=== PATIENT | male | born 1990 | race Caucasian/White ===

== ENCOUNTER 2020-01-13 16:11 | Emergency (ER) | payer MEDICAID, SELFPAY ==
--- NOTE | 2020-01-13 16:27 | XRR_ITS ---
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 Views: 3 or more views. COMPARISON: No relevant prior studies available. FINDINGS: Bones/joints: No acute fracture. Mild flexion positioning of the 2nd through 5th digits. Soft tissues: Soft tissue edema diffusely. XR/XR hand LT min 3V* [id number] IMPRESSION: 1. No acute osseous abnormality. 2. Soft tissue edema.
[2020-01-13 16:33] VITALS: BP 107/60; PULSE 70; RESP 16; TEMP 36.7; O2SAT 99; BMI 22.4
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
== END 2020-01-13 17:37 | disposition home or self-care (01) ==
LOC: ER 17:47
PROVIDERS: Emergency Provider Nurse Practitioner Family; PCP Family Medicine
DX: L03.114 Cellulitis of left upper limb (principal)
CPT/HCPCS: 12345; 73130; 99281; 99282

== ENCOUNTER 2024-02-25 07:52 | Emergency (ER) | payer SELFPAY ==
[2024-02-25 07:58] VITALS: BP 142/90; PULSE 67; RESP 21; TEMP 36.6; O2SAT 98; BMI 28.5
--- NOTE | 2024-02-25 08:00 | XRR_ITS ---
PROCEDURE INFORMATION: Exam: XR Chest Exam date and time: 02/25/2024 8:03 AM Age: 33 years old Clinical indication: Shortness of breath TECHNIQUE: Imaging protocol: Radiologic exam of the chest. Views: 1 view. COMPARISON: No relevant prior studies available. FINDINGS: Lungs: Unremarkable. No consolidation. Pleural spaces: Unremarkable. No pleural effusion. No pneumothorax. Heart/Mediastinum: Unremarkable. No cardiomegaly. Bones/joints: No acute bony abnormalities detected. XR/XR chest 1V portable [id number] IMPRESSION: Negative chest exam.
--- NOTE | 2024-02-25 08:00 | ECG_ITS ---
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 Measurements Intervals [place] Rate: 68 P: 76 [place]: 154 QRS: 89 QRSD: 99 T: 66 QT: 381 QTc: 405 Interpretive Statements SINUS RHYTHM No previous ECG available for comparison Electronically Signed On 02-25-2024 11:15:13 CDT by Flavio Guy M.D. [id number]
--- NOTE | 2024-02-25 08:01 | W.ED.CHESTPA ---
HPI - Chest Pain General: Chief Complaint: Chest Pain Stated Complaint: SOB/CP Time Seen by Provider: 02/25/24 07:58 History of Present Illness: 33-year-old man with a history of tobacco dependence who presents emergency room with cough and shortness of breath. This been going on for few days now. Worse today. Had trouble sleeping. Pain with breathing. No increased work of breathing. No hypoxemia on presentation. Related Data Previous Rx's Medication Instructions Recorded diclofenac potassium 50 mg tablet 50 mg PO Q8H PRN pain #15 tabs 01/13/20 albuterol sulfate 90 mcg/actuation 2 inh inhalation Q4H PRN shortness 02/25/24 aerosol inhaler of breath or wheezing #6.7 grams azithromycin 250 mg tablet See Rx Instructions PO .COMPLEX #6 02/25/24 (Zithromax Z-Blaine) tabs diclofenac sodium 50 mg 50 mg PO BID PRN pain #14 tabs 02/25/24 tablet,delayed release prednisone 20 mg tablet 60 mg (3 x 20 mg) PO DAILY #20 tabs 02/25/24 Allergies Allergy/AdvReac Type Severity Reaction Status Date / Time No Known Allergies Allergy Verified 02/25/24 08:01 Review of Systems Narrative: Constitutional symptoms: Negative except as documented in HPI. Skin symptoms: Negative except as documented in HPI. Eye symptoms: Negative except as documented in HPI. ENMT symptoms: Negative except as documented in HPI. Respiratory symptoms: Negative except as documented in HPI. Cardiovascular symptoms: Negative except as documented in HPI. Gastrointestinal symptoms: Negative except as documented in HPI. Genitourinary symptoms: Negative except as documented in HPI. Musculoskeletal symptoms: Negative except as documented in HPI. Neurologic symptoms: Negative except as documented in HPI. Psychiatric symptoms: Negative except as documented in HPI. Endocrine symptoms: Negative except as documented in HPI. Physical Exam Narrative: EXAM NARRATIVE: General: Alert, no acute distress. Skin: Warm, dry. Head: Normocephalic, atraumatic. Neck: Supple, trachea midline. Eye: Extraocular movements are intact. Ears, nose, mouth and throat: Oral mucosa moist. Cardiovascular: Regular rate and rhythm, Normal peripheral perfusion. Respiratory: some expiratory wheeze, mild increased wob, breath sounds are equal, Symmetrical chest wall expansion. Gastrointestinal: Soft, Nontender, Non distended, Normal bowel sounds. Musculoskeletal: Normal ROM, no deformity. Neurological: Alert and oriented to person, place, time, and situation, No focal neurological deficit observed. Psychiatric: Cooperative, appropriate mood & affect. Course Vital Signs: Vital signs: Vital Signs Temperature 97.8 F 02/25/24 07:58 Pulse Rate 67 02/25/24 07:58 Respiratory Rate 21 H 02/25/24 07:58 Blood Pressure 142/90 02/25/24 07:58 Pulse Oximetry 98 02/25/24 07:58 Oxygen Delivery Me thod Room Air 02/25/24 07:58 MDM - Chest Pain Medical Decision Making Differential diagnosis for patient with shortness of breath includes but is not limited to and based on the above HPI, review of systems and physical exam: Pneumonia. Bronchitis. Asthma or COPD with acute exacerbation. Acute coronary syndrome / [place]. Pulmonary embolism. Anxiety. Congestive heart failure. Viral infections including influenza and Covid-19. Atrial fibrillation. Anxiety. Pleural effusion. Pneumothorax. Workup: Lab work, chest X-ray and EKG ordered to evaluate, rule in and rule out above pathologies Chest x-ray: No acute process. No infiltrate. No pneumothorax. This was reviewed and interpreted by myself the ER physician. Lab Review: Laboratory results were reviewed and interpreted by myself the emergency room physician. Lab work is unremarkable. No leukocytosis. No anemia. No renal failure. I reviewed the patient's medical record. Reexamination: Patient remained stable. No increased work of breathing. No altered mental status. No focal motor deficits. Assessment and plan: Upper respiratory infection Tobacco dependence Wheezing ? Decadron and Toradol in the emergency room along with a breathing treatment. - Discharged home - Discussed plan with patient. Answered any questions. - Evaluation and treatment of this problem were appropriate in the emergency setting. Lab Data 02/25/24 08:26 02/25/24 08:26 Radiology Impressions Chest X-Ray 02/25/24 08:00 IMPRESSION: Negative chest exam. Laboratory Results WBC 6.83 10^3/uL (3.29-11.43) 02/25/24 08:26 RBC 4.89 10^6/uL (3.85-5.65) 02/25/24 08:26 Hgb 15.40 g/dL (11.27-16.99) 02/25/24 08:26 Hct 45.7 % (37-53) 02/25/24 08:26 MCV 93.5 fl (82-101) 02/25/24 08:26 MCH 31.5 pg (27-33) 02/25/24 08: MCHC 33.7 g/dL (30-55) 02/25/24 08:26 RDW 13.0 % (12.1-15.1) 02/25/24 08:26 Plt Count 271 10^3/cmm (157-399) 02/25/24 08:26 MPV 9.4 fL (7.4-10.4) 02/25/24 08:26 Neut % (Auto) 61.4 % 02/25/24 08:26 Lymph % (Auto) 27.7 % 02/25/24 08:26 [place] % (Auto) 8.6 % 02/25/24 08:26 Eos % (Auto) 1.9 % 02/25/24 08:26 Baso % (Auto) 0.3 % 02/25/24 08:26 Neut # (Auto) 4.19 10^3/uL (1.8-7.7) 02/25/24 08:26 Lymph # (Auto) 1.9 10^3/uL (0.8-4.8) 02/25/24 08:26 [place] # (Auto) 0.6 10^3/uL (0.2-0.9) 02/25/24 08:26 Eos # (Auto) 0.1 10^3/uL (0.0-0.8) 02/25/24 08:26 Baso # (Auto) 0.0 10^3/uL (0.0-0.1) 02/25/24 08:26 Nucleated RBC % (auto) 0 % 02/25/24 08:26 Nucleated RBCs # 0.0 /100WBC 02/25/24 08:26 Sodium 141 mmol/L (136-145) 02/25/24 08:26 Potassium 4.4 mmol/L (3.5-5.1) 02/25/24 08:26 Chloride 104 mmol/L (98-107) 02/25/24 08:26 Carbon Dioxide 25 mmol/L (22-29) 02/25/24 08:26 Anion Gap 16.4 (5-19) 02/25/24 08:26 BUN 13 mg/dL (6-20) 02/25/24 08:26 Creatinine 0.8 mg/dL (0.7-1.2) 02/25/24 08:26 GFR Calculation 110.0 mL/min (90-130) 02/25/24 08:26 Glucose 76 mg/dL (65-115) 02/25/24 08:26 Calculated Osmolality 291 mOsm/kg (285-295) 02/25/24 08:26 Calcium 9.3 mg/dL (8.5-10.5) 02/25/24 08:26 Total Bilirubin 0.5 mg/dL (0.15-1.2) 02/25/24 08:26 AST 18 U/L (0-40) 02/25/24 08:26 ALT 21 U/L (0-41) 02/25/24 08:26 Alkaline Phosphatase 92 U/L (40-130) 02/25/24 08:26 Total Protein 7.2 g/dL (6.6-8.7) 02/25/24 08:26 Albumin 4.7 g/dL (3.5-5.2) 02/25/24 08:26 Globulin 2.5 g/dL (1.3-4.6) 02/25/24 08:26 All radiology interpretation(s) finalized by discharge Discharge Plan Discharge Patient Disposition: Home Clinical Impression: Upper respiratory infection, Tobacco dependence Condition: Stable Prescriptions: New Zithromax Z-Blaine 250 mg tablet See Rx Instructions .ROUTE .COMPLEX Qty: 6 0RF Rx Instructions: For 250 mg dose pack: take 500 mg today (day 1), then 250 mg for 4 days (days 2-5) prednisone 20 mg tablet 60 mg PO DAILY Qty: 20 0RF Rx Instructions: 3 tabs (60 mg) x 3 days. 2 tabs (40 mg) x 3 days. 1 tab (20 mg) x 3 days. 1/2 tab (10 mg) x 4 days diclofenac sodium 50 mg tablet,delayed release (DR/EC) 50 mg PO BID PRN (Reason: pain) Qty: 14 0RF albuterol sulfate 90 mcg/actuation HFA aerosol inhaler 2 inh inhalation Q4H PRN (Reason: shortness of breath or wheezing) Qty: 6.7 0RF Rx Instructions: Please provide patient with a spacer No Action diclofenac potassium 50 mg tablet 50 mg PO Q8H PRN (Reason: pain) Qty: 15 0RF Discharge Orders: Discharge ED (Routine); Ordered 02/25/24 Ordered By: Margo Dean Referrals: Julia Cole MD [Primary Care Provider] - Discharge Diet: Usual diet Patient Instructions: How to Stop Smoking (ED), Upper Respiratory Infection (ED) Activity Restrictions/Additional Instructions: Thank you for choosing [facility] for your healthcare needs today. Please realize this is an emergency room and that we are providing you with a medical screening exam and this may not be complete and all inclusive of all the testing and or work up that you may need to determine your ailment or severity of your illness. You have been screened and evaluated and felt safe for discharge. Health conditions do change or evolve sometimes and as such it is important that you follow up with your Primary Doctor to be re checked, 3-5 days is a general good time frame for follow up. You are always welcome to return to the ED for re assessment if your symptoms are worsening or you have new concerns Coding Level of Care Code ED Analysis Manager for Rich Capps
[2024-02-25 08:43] LABS: Basophils % 0.3 %; Eosinophils # 0.1 10^3/uL (0.0-0.8); Eosinophils % 1.9 %; Hematocrit 45.7 % (37-53); Lymphocytes # 1.9 10^3/uL (0.8-4.8); Lymphocytes % 27.7 %; Mean Corpuscular HGB Conc 33.7 g/dL (30-55); Mean Corpuscular Hemoglobin 31.5 pg (27-33); Mean Corpuscular Volume 93.5 fl (82-101); Mean Platelet Volume 9.4 fL (7.4-10.4); Monocytes # 0.6 10^3/uL (0.2-0.9); Monocytes % 8.6 %; Neutrophils # 4.19 10^3/uL (1.8-7.7); Neutrophils % 61.4 %; Nucleated Red Blood Cells % 0 %; Platelet Count 271 10^3/cmm (157-399); Red Blood Count 4.89 10^6/uL (3.85-5.65); White Blood Count 6.83 10^3/uL (3.29-11.43)
[2024-02-25 09:05] LABS: Alanine Aminotransferase 21 U/L (0-41); Albumin Level 4.7 g/dL (3.5-5.2); Alkaline Phosphatase 92 U/L (40-130); Anion Gap 16.4 (5-19); Aspartate Amino Transferase 18 U/L (0-40); Blood Urea Nitrogen 13 mg/dL (6-20); Calcium 9.3 mg/dL (8.5-10.5); Carbon Dioxide 25 mmol/L (22-29); Chloride 104 mmol/L (98-107); Globulin 2.5 g/dL (1.3-4.6); Glucose 76 mg/dL (65-115); Osmolality Calculated 291 mOsm/kg (285-295); Potassium 4.4 mmol/L (3.5-5.1); Sodium 141 mmol/L (136-145); Total Bilirubin 0.5 mg/dL (0.15-1.2); Total Protein 7.2 g/dL (6.6-8.7)
[2024-02-25 09:34] VITALS: PULSE 58; RESP 16; O2SAT 96
[2024-02-25] MEDS: albuterol 2.5 mg/3 mL Neb INHALATION (09:35)
[2024-02-25 09:38] VITALS: PULSE 61
[2024-02-25] MEDS: ketorolac 60 mg/2 mL INJ IM (09:39)
[2024-02-25] MEDS: dexamethasone 10 mg/mL INJ IM (09:40)
[2024-02-25 09:53] VITALS: BP 134/70; PULSE 65; RESP 16; O2SAT 98
== END 2024-02-25 09:54 | disposition home or self-care (01) ==
PROVIDERS: Emergency Provider Emergency Medicine; PCP Family Medicine
DX: J06.9 Acute upper respiratory infection, unspecified (principal); F17.200 Nicotine dependence, unspecified, uncomplicated
CPT/HCPCS: 36415; 71045; 80053; 85025; 93005; 94640; 96372; 99285; J1100; J1885; J7613

== ENCOUNTER 2024-05-01 12:43 | Emergency (ER) | payer BC, MEDICAID, SELFPAY ==
[2024-05-01 12:49] VITALS: BP 174/78; PULSE 84; RESP 17; TEMP 36.5; O2SAT 93; BMI 27.1
--- NOTE | 2024-05-01 13:44 | W.ED.BACK ---
HPI - Back Pain/Injury General: Chief Complaint: Back Pain/Injury Stated Complaint: lower back pain, tingling in legs Time Seen by Provider: 05/01/24 13:40 Source: patient Mode of arrival: ambulatory Limitations: no limitations History of Present Illness: Patient is a nice 33-year-old male presents to ED today for evaluation of lower back pain following a fall. Patient states over the weekend he was skateboarding with his nephew when he accidentally fell and injured his lower back, left shoulder and left elbow. He feels like the shoulder and elbow have improved since injury but he continues to have lower back pain. He is reporting tingling into his lower extremities. Denies saddle anesthesia or bowel or bladder dysfunction. States he has a previous history of back surgery/lumbar fusion years ago. Pain is significantly worse with ambulation. MD elicited complaint: back pain Pertinent past history: recent trauma Onset (ago): day(s) Timing: constant Severity: severe Location: lumbar spine Radiation: left leg below the knee and right leg below the knee Exacerbating factors: walking Relieving factors: none Associated symptoms: Reports no associated symptoms and difficulty walking; Deny abdominal pain or fever(s) Work related injury: No Related Data Previous Rx's Medication Instructions Recorded albuterol sulfate 90 mcg/actuation 2 inh inhalation Q4H PRN shortness 02/25/24 aerosol inhaler of breath or wheezing #6.7 grams hydrocodone 5 mg-acetaminophen 325 1 tab PO Q6H PRN pain #14 tabs 05/01/24 mg tablet ibuprofen 800 mg tablet 800 mg PO Q8H PRN pain #20 tabs 05/01/24 methocarbamol 500 mg tablet 1,000 mg (2 x 500 mg) PO Q8H #30 05/01/24 tabs prednisone 10 mg tablet 10 mg PO DAILY 6 days #20 tabs 05/01/24 Allergies Allergy/AdvReac Type Severity Reaction Status Date / Time No Known Allergies Allergy Verified 02/25/24 08:01 Review of Systems Const: Denies: fever(s) Card: Denies: chest pain Resp: Denies: dyspnea GI: Denies: abdominal pain Musc: Reports: back pain and joint pain (L shoulder, L elbow; improving since injury); Denies: neck pain Neuro: Reports: sensory changes (tingling to legs) and difficulty walking; Denies: headache(s) or weakness in extremities Physical Exam Const: COMMON NORMALS: no acute distress, average body habitus, patient oriented x3, no limitations, healthy appearing, alert and well nourished Neck/C-Spine: COMMON NORMALS: full ROM CERVICAL SPINE: No pain with cervical ROM and No Cervical spine tenderness Back/Pelvis: THORACIC SPINE/UPPER BACK: No thoracic spinal tenderness LUMBAR SPINE/LOWER BACK: Yes lumbar spinal tenderness SACROILIAC JOINTS: Yes SI joint(s) abnormal SI joint details: tender to palpation (R) SACRUM: no tenderness COCCYX: no tenderness Extremity: GENERAL: Yes normal exam except as noted OTHER: minor discomforts to the L shoulder/elbow-fairly normal ROM without significant pain; pt declines XR imaging stating they are feeling much better since the fall; NV intact Neuro: COMMON NORMALS: patient oriented x3, moves all extremities, no focal motor deficits, no sensory deficits noted and gait normal SENSORIUM/ORIENTATION: Yes alert Skin: COMMON NORMALS: no rashes or lesions noted GENERAL SKIN EXAM: no rashes or lesions noted Course Vital Signs: Vital signs: Vital Signs Temperature 97.7 F 05/01/24 12:49 Pulse Rate 61 05/01/24 13:45 Respiratory Rate 14 05/01/24 13:45 Blood Pressure 134/92 05/01/24 13:45 Pulse Oximetry 96 05/01/24 13:45 Oxygen Delivery Me thod Room Air 05/01/24 13:45 MDM - Back Pain/Injury Medical Decision Making CT scan showing no acute findings. Chronic changes noted. He will be treated with anti-inflammatories, steroids, muscle relaxers, pain medications. Will case management set him up with primary care provider for further evaluation and treatment in case symptoms do not improve. Return ED precautions given. Medical Records I reviewed the patient's medical records. Labs Radiology Impressions Lumbar Spine CT 05/01/24 14:00 IMPRESSION: 1. No acute findings. 2. Disc bulges noted at L4-L5 and L5-S1 All radiology interpretation(s) finalized by discharge Discharge Plan Discharge Patient Disposition: Home Clinical Impression: Injury of low back Qualifiers: Encounter type: initial encounter Qualified Code(s): S39.92XA - Unspecified injury of lower back, initial encounter Condition: Stable Prescriptions: New methocarbamol 500 mg tablet 1,000 mg PO Q8H Qty: 30 0RF prednisone 10 mg tablet 10 mg PO DAILY 6 Days Qty: 20 0RF Rx Instructions: Take 5 tabs on day 1-2, 4 tabs on day 3, 3 tabs on day 4, 2 tabs on day 5, and 1 tab on day 6 ibuprofen 800 mg tablet 800 mg PO Q8H PRN (Reason: pain) Qty: 20 0RF hydrocodone-acetaminophen 5-325 mg tablet 1 tab PO Q6H PRN (Reason: pain) Qty: 14 0RF Discontinued diclofenac potassium 50 mg tablet 50 mg PO Q8H PRN (Reason: pain) Qty: 15 0RF azithromycin [Zithromax Z-Baline] 250 mg tablet See Rx Instructions .ROUTE .COMPLEX Qty: 6 0RF Rx Instructions: For 250 mg dose pack: take 500 mg today (day 1), then 250 mg for 4 days (days 2-5) prednisone 20 mg tablet 60 mg PO DAILY Qty: 20 0RF Rx Instructions: 3 tabs (60 mg) x 3 days. 2 tabs (40 mg) x 3 days. 1 tab (20 mg) x 3 days. 1/2 tab (10 mg) x 4 days diclofenac sodium 50 mg tablet,delayed release (DR/EC) 50 mg PO BID PRN (Reason: pain) Qty: 14 0RF No Action albuterol sulfate 90 mcg/actuation HFA aerosol inhaler 2 inh inhalation Q4H PRN (Reason: shortness of breath or wheezing) Qty: 6.7 0RF Rx Instructions: Please provide patient with a spacer Discharge Orders: Discharge ED (Routine); Ordered 05/01/24 Ordered By: Chiqui Emery Patient Instructions: Low Back Strain (ED), Acute Low Back Pain (ED), Opioid Safety, Pain Management Activity Restrictions/Additional Instructions: As we discussed, we will treat with combination of anti-inflammatories, muscle relaxers, and steroids. You may take the hydrocodone sparingly for severe pain or at night to help you get rest. You may also do ice and heat to help. I will have case management reach out to you to help set you up with a primary care provider in case symptoms do not improve. Coding Level of Care Code ED Multicut Line Operator for Rich Capps
[2024-05-01 13:45] VITALS: BP 134/92; PULSE 61; RESP 14; O2SAT 96
--- NOTE | 2024-05-01 14:00 | CTR_ITS ---
PROCEDURE INFORMATION: Exam: CT Lumbar Spine Without Contrast Exam date and time: 05/01/2024 3:01 PM Age: 33 years old Clinical indication: Low back pain; Additional info: Pain, radiculopathy TECHNIQUE: Imaging protocol: Computed tomography of the lumbar spine without contrast. Radiation optimization: All CT scans at this facility use at least one of these dose optimization techniques: automated exposure control; mA and/or kV adjustment per patient size (includes targeted exams where dose is matched to clinical indication); or iterative reconstruction. COMPARISON: No relevant prior studies available. RADIATION DOSE METRICS: Total DLP (mGy-cm): 450.33 FINDINGS: Bones/joints: A small Schmorl's node involves the superior endplate of the L3 vertebral body. Mild vertebral body spurring is noted anteriorly at L4 and L5. I see no fracture or subluxation. A left-sided disc bulge is noted at the L5-S1 level and a concentric disc bulge is noted at the L4-L5 level. Soft tissues: Unremarkable. CT/CT lumbar spine wo con* [id number] IMPRESSION: 1. No acute findings. 2. Disc bulges noted at L4-L5 and L5-S1
[2024-05-01] MEDS: ketorolac 60 mg/2 mL INJ IM (14:11)
[2024-05-01] MEDS: dexamethasone 10 mg/mL INJ 8 MG IM (14:11)
[2024-05-01 16:16] VITALS: BP 109/66; PULSE 62; RESP 16; O2SAT 98
--- NOTE | 2024-05-04 09:23 | DCPLANNER ---
messaged mtn view for er f/u
== END 2024-05-01 16:09 | disposition home or self-care (01) ==
PROVIDERS: Emergency Provider Physician Assistant
DX: S39.92XA Unspecified injury of lower back, initial encounter (principal); W19.XXXA Unspecified fall, initial encounter
CPT/HCPCS: 72131; 96372; 99284; J1100; J1885

== ENCOUNTER 2024-12-08 06:26 | Emergency (ER) | payer BC, MEDICAID, SELFPAY ==
--- OUTSIDE RECORDS SUMMARY | 2024-12-08 06:30 | XMS_ITS | Encounter Summary ---
Author Organization [facility] Address [address] [place] [address] Care Team Providers Care Signals Officer Name Role Phone Sara Crabtree DO Primary Care Provider Encounter Details Date Type Department Care Team (Late Contact Info) Description 11/20/2024 Results Follow-Up [facility] [place] [address] [place] [address] Chris Barakat FNP [address] [place] [address] WOUND (AEROBIC) CULTURE WITH GRAM STAIN Social History Tobacco Use Types Packs/Day Years Used Date Smoking Tobacco: Every Day Cigarettes Smokeless Tobacco: Never Alcohol Use Standard Drinks/Week Comments Yes 0.8 (1 standard drink = 0.6 oz p ure alcohol) Feeling Safe Answer Date Recorded Are you in a relationship wi th someone who hurts you emotionally and/or physically? 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 Gender Identity Not on file Sexual Orientation Not on file documented as of this encounter Plan of Treatment Upcoming Encounters Date Type Department Care Team (Late st Contact Info) Description 01/04/2025 9:40 AM CDT Office Visit [facility] Neuro[facility] [address] [place] [id number] Kuldip Chan MD [address] [place] [address] documented as of this encounter Visit Diagnoses Not on filedocumented in this encounter Additional Health Concerns Infection Onset Date Last Indicated Resolved Time 

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
--- NOTE | 2024-12-08 06:31 | XR_ITS ---
WS: [id number] XR knee LT 3V* [id number] REASON FOR EXAM: pain/swelling FINDINGS: No focal bony abnormality. The joint spaces of the knee are intact and well preserved. No radiopaque soft tissue foreign body. XR/XR knee LT 3V* [id number] IMPRESSION: No significant abnormality.
[2024-12-08 06:33] VITALS: BP 104/72; PULSE 87; RESP 16; TEMP 36.6; O2SAT 100; BMI 23.0
[2024-12-08 07:01] LABS: Hematocrit 45.6 % (37-53); Hemoglobin 15.10 g/dL (11.27-16.99); Mean Corpuscular HGB Conc 33.1 g/dL (30-55); Mean Corpuscular Hemoglobin 31.1 pg (27-33); Mean Corpuscular Volume 93.8 fl (82-101); Nucleated Red Blood Cells % 0 %; Platelet Count 241 10^3/cmm (157-399); Red Blood Count 4.86 10^6/uL (3.85-5.65); White Blood Count 7.59 10^3/uL (3.29-11.43)
--- NOTE | 2024-12-08 07:09 | ED_ITS ---
HPI - Skin/Abscess/Foreign Bdy 2 General: Chief complaint: Skin/Abscess/Foreign Body Stated complaint: lt knee swellling Time Seen by Provider: 12/08/24 06:30 History of Present Illness: 34-year-old male presents emergency room 's localized swelling in the medial aspect of the left knee with some drainage. Some localized erythema and skin tenderness. No fever at home. Associated symptoms: Deny chills or fever(s) Related Data Previous Rx's ?Medication ?Instructions ?Recorded albuterol sulfate 90 mcg/actuation 2 inh inhalation Q4 H PRN shortness 02/25/24 aerosol inhaler of breath or wheezing #6.7 g manasa ibuprofen 800 mg tablet 800 mg PO Q8H PRN pain #20 t abs 05/01/24 acetaminophen 300 mg-codeine 30 mg 1 tab PO Q6H PRN pa in 5 days #20 06/08/24 tablet tabs methocarbamol 750 mg tablet 750 mg PO TID 5 days #15 t abs 06/08/24 methylprednisolone 4 mg tablets in See Rx Instructions PO PER PKG DIR 06/08/24 a dose pack (Medrol (Blaine)) #21 ea diclofenac sodium 75 mg 75 mg PO Q12H PRN pain #20 t abs 12/08/24 tablet,delayed release sulfamethoxazole 800 2 tab PO BID 7 days #28 tabs 12/08/24 mg-trimethoprim 160 mg tablet (Bactrim DS) Allergies Allergy/AdvReac Type Severity Reaction Status Date / Time Unknown nausea med Allergy ALGY-Hives Uncoded 10/09/24 12:27 Review of Systems 2 Const: Denies: fever(s) or chills Card: Denies: chest pain Resp: Denies: dyspnea GI: Denies: abdominal pain : Denies: dysuria, urinary frequency or urinary urgency Musc: Denies: neck pain or back pain Skin/Breast: Reports: erythema and skin tenderness PFSH ED 2 PFSH: Social History Smoking and tobacco/nicotine status: never used tobacco/nicotine Physical Exam 2 Const: GENERAL APPEARANCE: cooperative ORIENTATION/CONSCIOUSNESS: Yes awake, Yes oriented to person, Yes oriented to place and Yes oriented to time HENMT: COMMON NORMALS: normocephalic, atraumatic and hearing grossly normal bilaterally HEAD & SCALP: normocephalic and atraumatic Resp: COMMON NORMALS: normal respiratory effort, No retractions, No use of accessory muscles and clear to auscultation bilaterally AUSCULTATION: clear to auscultation bilaterally Cardio: COMMON NORMALS: regular rate, regular rhythm and No murmurs present (Cardio) RATE: regular rate RHYTHM: regular rhythm GI: COMMON NORMALS: Soft to palpation and No hepatosplenomegaly present A USCULTATION: Yes normoactive bowel sounds PALPATION: Yes Soft to palpation, No Tenderness to palpation present (GI), No Guarding due to palpation present (GI) and Yes No hepatosplenomegaly present Extremity: COMMON NORMALS: normal to inspection, capillary refill normal, no clubbing, cyanosis or edema, no calf tenderness and no pedal edema Neuro: SENSORIUM/ORIENTATION: Yes oriented to person, Yes oriented to place and Yes oriented to time Skin: OTHER: 1/2 cm localized area of redness erythem a and tenderness to medial aspect of the knee no joint effusion noted no deformity. Localized erythema with some proximal lymphangitic spread. No fluctuance. Course 2 Vital Signs: Vital signs: Vital Signs Temperature 97.9 F 12/08/24 06:33 Pulse Rate 87 12/08/24 06:33 Respiratory Rate 16 12/08/24 06:33 Blood Pressure 104/72 12/08/24 06:33 Pulse Oximetry 100 12/08/24 06:33 Oxygen Delivery Me thod Room Air 12/08/24 06:33 MDM - Skin/Abscess/Foreign Bdy Medicial Decision Making Localized cellulitis no leukocytosis will start on Bactrim DS 2 p.o. twice daily. Apply topical mupirocin. If has fever or worsening symptoms return Medical Records I reviewed the patient's medical records. Lab Data I reviewed the patient's lab results. 12/08/24 06:55 Radiology Impressions Knee X-Ray 12/08/24 06:31 IMPRESSION: No significant abnormality. Laboratory Results WBC 7.59 10^3/uL (3.29-11.43) 12/08/24 06:55 RBC 4.86 10^6/uL (3.85-5.65) 12/08/24 06:55 Hgb 15.10 g/dL (11.27-16.99) 12/08/24 06:55 Hct 45.6 % (37-53) 12/08/24 06:55 MCV 93.8 fl (82-101) 12/08/24 06:55 MCH 31.1 pg (27-33) 12/08/24 06:55 MCHC 33.1 g/dL (30-55) 12/08/24 06:55 RDW 13.1 % (12.1-15.1) 12/08/24 06:55 Plt Count 241 10^3/cmm (157-399) 12/08/24 06:55 MPV 9.1 fL (7.4-10.4) 12/08/24 06:55 Neut % (Auto) 67.2 % 12/08/24 06:55 Lymph % (Auto) 19.2 % 12/08/24 06:55 [place] % (Auto) 11.7 % 12/08/24 06:55 Eos % (Auto) 1.3 % 12/08/24 06:55 Baso % (Auto) 0.3 % 12/08/24 06:55 Neut # (Auto) 5.10 10^3/uL (1.8-7.7) 12/08/24 06:55 Lymph # (Auto) 1.5 10^3/uL (0.8-4.8) 12/08/24 06:55 [place] # (Auto) 0.9 10^3/uL (0.2-0.9) 12/08/24 06:55 Eos # (Auto) 0.1 10^3/uL (0.0-0.8) 12/08/24 06:55 Baso # (Auto) 0.0 10^3/uL (0.0-0.1) 12/08/24 06:55 Nucleated RBC % (auto) 0 % 12/08/24 06:55 Nucleated RBCs # 0.0 /100WBC 12/08/24 06:55 ESR 10 mm/hr (0-10) 12/08/24 06:55 No radiology studies performed this visit Discharge Plan Discharge Patient Disposition: Home Clinical Impression: Cellulitis Condition: Stable Prescriptions: New sulfamethoxazole-trimethoprim [Bactrim DS] 800-160 mg tablet 2 tab PO BID 7 Days Qty: 28 0RF diclofenac sodium 75 mg tablet,delayed release (DR/EC) 75 mg PO Q12H PRN (Reason: pain) Qty: 20 0RF No Action acetaminophen-codeine 300-30 mg tablet 1 tab PO Q6H PRN (Reason: pain) 5 Days Qty: 20 0RF methylprednisolone [Medrol (Blaine)] 4 mg tablets,dose pack See Rx Instructions PO PER PKG DIR Qty: 21 0RF Rx Instructions: PO PER PKG DIR methocarbamol 750 mg tablet 750 mg PO TID 5 Days Qty: 15 0RF ibuprofen 800 mg tablet 800 mg PO Q8H PRN (Reason: pain) Qty: 20 0RF albuterol sulfate 90 mcg/actuation HFA aerosol inhaler 2 inh inhalation Q4H PRN (Reason: shortness of breath or wheezing) Qty: 6.7 0RF Rx Instructions: Please provide patient with a spacer Discharge Orders: Discharge ED (Routine); Ordered 12/08/24 Ordered By: Luiz Sanchez Discharge Diet: Usual diet Discharge Activity: Increase activity as tolerated Patient Instructions: Opioid Safety, Pain Management, Patient Portal & August Instructions Activity Restrictions/Additional Instructions: Thank you for choosing [facility] for your healthcare needs today. It is very important that you follow up as instructed or that you return to the Emergency Department should you have concerns or if your condition changes or worsens in any way. You were seen emergency room with a an infection of the skin on the medial aspect of your left knee. There is no sign of significant abscess at this time there are some localized redness and erythema we will start you on oral antibiotics will 2 pills twice a day for 7 days. You are also given diclofenac to use for pain do not take ibuprofen or Aleve while taking the diclofenac. X- ray of your knee was normal. 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
== END 2024-12-08 07:38 | disposition home or self-care (01) ==
PROVIDERS: Emergency Provider Family Medicine
DX: L03.116 Cellulitis of left lower limb (principal)
CPT/HCPCS: 36415; 73562; 85025; 85651; 99284